=== PATIENT | female | born 1995 | race Caucasian/White ===

== ENCOUNTER 2020-03-10 20:49 | Inpatient (IN) | payer BC, OTHER ==
[2020-03-10 21:26] VITALS: BMI 21.0
--- NOTE | 2020-03-10 23:29 | HP ---
CIWA Score Nausea/Vomitin-Mild Nausea/No Vomiting (nausea) Muscle Tremors: None Anxiety: 4-Mod. Anxious/Guarded Agitation: 4-Moderately Restless Paroxysmal Sweats: 3 Orientation: 1-Uncertain about Date Tacttile Disturbances: 2-Mild Itch/Numbness/Burn Auditory Disturbances: 0-None Visual Disturbances: 0-None Headache: 0-None Present CIWA-Ar Total Score: 15 - Admission Criteria OASAS Guidelines: Admission for Medically Managed Detox: Requires at least one of the followin. CIWA greater than 12 2. Seizures within the past 24 hours 3. Delirium tremens within the past 24 hours 4. Hallucinations within the past 24 hours 5. Acute intervention needed for co occurring medical disorder 6. Acute intervention needed for co occurring psychiatric disorder 7. Severe withdrawal that cannot be handled at a lower level of care (continued vomiting, continued diarrhea, abnormal vital signs) requiring intravenous medication and/or fluids 8. Patient presents the following: CIWA greater than 12 Admission Criteria Met: Admission criteria met Admission ROS [facility] - [facility] Chief Complaint: c/o withdrawal sx's. seeking detox from alcohol and klonopin Allergies/Adverse Reactions: Allergies Allergy/AdvReac Type Severity Reaction Status Date / Time No Known Allergies Allergy Verified 03/11/20 00:36 History of Present Illness: 24 y.o. female with alcohol, opioid, benzo dependence here fro detox. client is self referred. first admission. she reports daily klonopin, and alcohol intake. last use earlier today. she is alos abusing heroin. report mmtp at [facility]. reported dose 225mg of methadone, ldm today. + ivdu, + eye lathe tender, blackouts, drug overdose x3. Denies si/hi/ avh. denies any clean time in the past 12 months. lives with family, unemployed, denies legals. Exam Limitations: No Limitations - Ebola screening Have you traveled outside of the country in the last 21 days: No Have you had contact with anyone from an Ebola affected area: No Have you been sick,other than usual withdrawal symptoms: No Do you have a fever: No - Review of Systems Constitutional: Chills, Loss of Appetite, Night Sweats, Unintentional Wgt. Loss EENT: reports: No Symptoms Reported Respiratory: reports: No Symptoms reported Cardiac: reports: No Symptoms Reported GI: reports: Nausea, Poor Appetite : reports: No Symptoms Reported Musculoskeletal: reports: No Symptoms Reported Integumentary: reports: No Symptoms Reported Neuro: reports: Headache, Seizure Endocrine: reports: No Symptoms Reported Hematology: reports: No Symptoms Reported Psychiatric: reports: Orientated x3, Anxious, Depressed (denies si) Other Systems: Reviewed and Negative Patient History - Patient Medical History Hx Anemia: No Hx Asthma: No Hx Chronic Obstructive Pulmonary Disease (COPD): No Hx Cancer: No Hx Cardiac Disorders: No Hx Congestive Heart Failure: No Hx Hypertension: No Hx Hypercholesterolemia: No Hx Pacemaker: No HX Cerebrovascular Accident: No Hx Seizures: Yes (r/ tbenz, alcohol withdrawal. last episode 3 months) Hx Dementia: No Hx Diabetes: No Hx Gastrointestinal Disorders: No Hx Liver Disease: No Hx Genitourinary Disorders: No Hx Sexually Transmitted Disorders: No Hx Renal Disease (ESRD): No Hx Thyroid Disease: No Hx Human Immunodeficiency Virus (HIV): No Hx Hepatitis C: Yes (tx'ed) Hx Depression: No Hx Suicide Attempt: No Hx Bipolar Disorder: No Hx Schizophrenia: No Other Medical History: denies - Patient Surgical History Past Surgical History: No - PPD History Previous Implant?: Yes Documented Results: Negative w/o proof Implanted On Prior [facility] Admission?: No PPD to be Administered?: Yes - Reproductive History Patient is a Female of Child Bearing Age (11 -55 yrs old): Yes Last Menstrual Period: 06/10/19 ( 02/14/20) LMP comment: preganat for past 10 months [place] [facility] [place] Smoking Cessation Smoking history: Current every day smoker Have you smoked in the past 12 months: Yes Aproximately how many cigarettes per day: 10 Cigars Per Day: 0 Hx Chewing Tobacco Use: No Initiated information on smoking cessation: Yes 'Breaking Loose' booklet given: 03/10/20 - Substance & Tx. History Hx Alcohol Use: Yes Hx Substance Use: Yes Substance Use Type: Alcohol, Heroin, Opiates, Prescribed (methadone), Tranquilizers (klonopin) Hx Substance Use Treatment: Yes ([facility]) - Substances abused Benzodiazepine (Klonopin) Substance route: Oral Frequency: Daily Amount used: 4mg Age of first use: 13 Date of last use: 03/10/20 (utox neg for bzo) Alcohol Other (specify): vodka Substance route: Oral Frequency: Daily Amount used: 1/2 pint Age of first use: 23 Date of last use: 03/10/20 Heroin Substance route: Injection Frequency: Daily Amount used: 10 bags Age of first use: 19 Date of last use: 03/10/20 Admission Physical Exam [facility] - Vital Signs Vital Signs: Vital Signs - 24 hr 03/10/20 21:24 Temperature 97.5 F L Pulse Rate 62 Respiratory 18 Rate Blood Pressure 120/85 - Physical General Appearance: Yes: Moderate Distress, Irritable, Anxious HEENTM: Yes: EOMI, Normocephalic, Normal Voice, KENZIE, Pharynx Normal, Nasal Congestion Respiratory: Yes: Chest Non-Tender, Lungs Clear, Normal Breath Sounds, No Respiratory Distress, No Accessory Muscle Use Neck: Yes: No masses,lesions,Nodules, Supple, Trachea in good position Breast: Yes: Breasts Symetrical, Other (track chau) Cardiology: Yes: Regular Rhythm, Regular Rate, Diastolic Murmur Abdominal: Yes: Normal Bowel Sounds, Non Tender, Flat, Soft, Surgical Scar (healed c- cestion) Genitourinary: Yes: Within Normal Limits Back: Yes: Normal Inspection Musculoskeletal: Yes: full range of Motion, Gait Steady Extremities: Yes: Normal Capillary Refill, Normal Range of Motion, Non-Tender Neurological: Yes: Fully Oriented, Alert, Motor Strength 5/5, Depressed Affect Integumentary: Yes: Dry, Warm, Track Chau (arms, meck, breast, legs) Lymphatic: Yes: Within Normal Limits - Diagnostic (1) Methadone maintenance therapy patient Current Visit: Yes Status: Chronic (2) Alcohol dependence with withdrawal, uncomplicated Current Visit: Yes Status: Acute (3) Benzodiazepine abuse Current Visit: Yes Status: Suspected (4) Nicotine dependence Current Visit: Yes Status: Chronic Qualifiers: Nicotine product type: cigarettes Substance use status: uncomplicated Qualified Code(s): F17.210 - Nicotine dependence, cigarettes, uncomplicated (5) Depressed affect Current Visit: Yes Status: Suspected (6) IVDU (intravenous drug user) Current Visit: Yes Status: Chronic Cleared for Admission [facility] - Detox or Rehab [facility] Level of Care: Medically Managed Detox Regimen/Protocol: Valium Claeared for Rehab Admission: No Breathalyzer - Breathalyzer Breathalyzer: 0 Urine Drug Screen - Test Device Lot number: [id number] Expiration date: 05/01/21 - Control Is test valid?: Yes - Results Drug screen NEGATIVE: No Urine drug screen results: AMEE-Cocaine, FEN-Fentanyl, MOP-Opiates, MTD-Methadone Inpatient Rehab Admission - Rehab Decision to Admit Inpatient rehab admission?: No
[2020-03-10] MEDS ORDERED: MAGNESIUM CITRATE 300 ML BOTTLE PO PRN (23:53)
[2020-03-10] MEDS ORDERED: MAGNESIUM HYDROX 2400MG/30ML ORAL SUSPENSION 30 ML CUP PO PRN (23:53)
[2020-03-10] MEDS ORDERED: guaiFENesin 200 MG/10 ML 10 ML UNIT-DOSE CUPS PO PRN (23:53)
[2020-03-10] MEDS ORDERED: MENTHOL/PHENOL 1 EACH UD MM PRN (23:53)
[2020-03-10] MEDS ORDERED: NICOTINE POLACRILEX 2 MG GUM BUC PRN (23:53)
[2020-03-10] MEDS ORDERED: DICYCLOMINE HCL 10 MG CAPSULE PO PRN (23:53)
[2020-03-10] MEDS ORDERED: ACETAMINOPHEN 325 MG TABLET (FP) PO PRN ×2 (23:53)
[2020-03-10] MEDS ORDERED: MAG HYDROX/AL HYDROX/SIMETH 30 ML UNIT-DOSE CUP PO PRN (23:53)
[2020-03-10] MEDS ORDERED: P-EPHED 60MG/TRIPROLIDI 2.5MG TABLET PO PRN (23:53)
[2020-03-11] MEDS: diazePAM 5 MG TABLET PO PRN ×4 (01:04→19:30)
[2020-03-11] MEDS: MELATONIN 5 MG TABLETS PO SCH ×2 (01:05→22:14)
[2020-03-11] MEDS: ONDANSETRON *ODT* 4 MG TABLET SL ONE ×2 (01:05→01:11)
[2020-03-11] MEDS: diazePAM 5 MG TABLET PO SCH ×3 (05:34→22:14)
[2020-03-11] MEDS ORDERED: hydrOXYzine PAMOATE 25 MG CAPSULE (FP) PO SCH (06:00)
[2020-03-11] MEDS ORDERED: METHADONE HCL 10 MG TABLET PO SCH (10:15)
[2020-03-11] MEDS ORDERED: METHADONE HCL 10 MG TABLET ONE (10:40)
[2020-03-11] MEDS ORDERED: METHADONE HCL 5 MG TABLET ONE (10:41)
[2020-03-11] MEDS ORDERED: METHADONE HCL 40 MG DISPERSABLE TABLET ONE (10:41)
[2020-03-11] MEDS: METHADONE PO SCH (10:43)
[2020-03-11] MEDS: PRENATAL VITAMINS W/ FOLIC ACID TABLET (FP) PO SCH (10:43)
[2020-03-11] MEDS: NICOTINE 14 MG/24 HOURS TOPICAL PATCH TD SCH (10:45)
--- NOTE | 2020-03-11 14:21 | PN ---
S CIWA - CIWA Score Nausea/Vomitin-No Nausea/No Vomiting Muscle Tremors: None Anxiety: 3 Agitation: 2 Paroxysmal Sweats: 3 Orientation: 0-Oriented Tacttile Disturbances: 0-None Auditory Disturbances: 0-None Visual Disturbances: 0-None Headache: 2-Mild CIWA-Ar Total Score: 10 BHS Progress Note (SOAP) Subjective: c/o sweats, anxiety, and headache. Objective: 03/11/20 14:21 Vital Signs 03/11/20 03/11/20 08:36 12:58 Temperature 97.2 F L 96.9 F L Pulse Rate 80 87 Respiratory 18 18 Rate Blood Pressure 109/78 108/74 O2 Sat by Pulse 96 Oximetry (%) Assessment: 03/11/20 14:22 AOx 3, in no acute respiratory distress. Full ROM, ambulating in the unit. Withdrawal symptoms. Covid-19 test result pending. 03/11/20 14:23 Plan: continue detox.
[2020-03-11] MEDS ORDERED: TRIMETHOBENZAMIDE HCL 200MG/2ML INJ IM PRN (15:36)
--- NOTE | 2020-03-11 16:51 | CONSULT ---
[facility] Psychiatric Consult - Data Date of interview: 03/11/20 Admission source: [facility] Identifying data: First visit to [facility] and admission to [address] [place] [address] for this 24 y/o female self-referred for detoxification treatment. MANOJ issues : alcohol, nicotine, heroin, benzodiazepines (xanax, klonopin). Patient is single, mother of two, domiciled, unemployed and supported by [facility]. Substance Abuse History: Discussed with the patient. MANOJ profile as follows : Smoking history: Current every day smoker. Have you smoked in the past 12 months: Yes. Aproximately how many cigarettes per day: 10. Cigars Per Day: 0. Hx Chewing Tobacco Use: No. Initiated information on smoking cessation: Yes. 'Breaking Loose' booklet given: 03/10/20. - Substance & Tx. History. Hx Alcohol Use: Yes. Hx Substance Use: Yes. Substance Use Type: Alcohol, Heroin, Opiates, Prescribed (methadone), Tranquilizers (klonopin). Hx Substance Use Treatment: Yes (aci). - Substances abused. Benzodiazepine (Klonopin). Substance route: Oral. Frequency: Daily. Amount used: 4mg. Age of first use: 13. Date of last use: 03/10/20 (utox neg for bzo). Alcohol. Other (specify): vodka. Substance route: Oral. Frequency: Daily. Amount used: 1/2 pint. Age of first use: 23. Date of last use: 03/10/20. Heroin. Substance route: Injection. Frequency: Daily. Amount used: 10 bags. Age of first use: 19. Date of last use: 03/10/20 Medical History: Medical profile is remarkable for antecedent of withdrawal- related seizures, hepatistis C and recent section (02/14/20). Psychiatric History: Patient denies history of psychiatric hospitalizations. She used to see a private psychiatrist in [place] for medication management under the diagnosis of Anxiety Disorder (4-5 years ago). Ms Goss is currently on gabapentin 800 mg/tid from her primary care physician. Patient is on methadone maintenance (225 mg/day) at the [facility] in [facility]. She denies history of suicide attempts. Physical/Sexual Abuse/Trauma History: Not discussed. Patient declines. Additional Comment: Urine drug screen results: AMEE-Cocaine, FEN-Fentanyl, MOP-Opiates, MTD-Methadone. Noted. Mental Status Exam - Mental Status Exam Alert and Oriented to: Time, Place, Person Cognitive Function: Good Patient Appearance: Well Groomed (short stature, thin habitus) Mood: Nervous Affect: Appropriate, Normal Range Patient Behavior: Cooperative (medication-seeking) Speech Pattern: Clear, Appropriate Voice Loudness: Normal Thought Process: Intact, Goal Oriented Thought Disorder: Not Present Hallucinations: Denies Suicidal Ideation: Denies Homicidal Ideation: Denies Insight/Judgement: Poor Sleep: Poorly, Difficulty falling asleep Appetite: Good Gait/Station: Normal Psychiatric Findings - Problem List ([place] 1, 2,3) (1) Alcohol dependence with withdrawal, uncomplicated Current Visit: Yes Status: Acute (2) Opioid dependence on agonist therapy Current Visit: Yes Status: Chronic (3) Benzodiazepine abuse Current Visit: Yes Status: Chronic (4) Nicotine dependence Current Visit: Yes Status: Chronic Qualifiers: Nicotine product type: cigarettes Substance use status: uncomplicated Qualified Code(s): F17.210 - Nicotine dependence, cigarettes, uncomplicated (5) Substance induced mood disorder Current Visit: Yes Status: Chronic (6) Insomnia Current Visit: Yes Status: Chronic - Initial Treatment Plan Initial Treatment Plan: Psychoeducation. Sleep hygiene. Detoxification. Claim of gabapentin 800 mg/qid cannot be verified (no pharmacy on file, no medication reported in Reconciliation list). Observation.
[2020-03-11] MEDS: BISMUTH SUBSALICYLATE 524 MG/30 ML UD PO PRN ×3 (17:58→20:46)
[2020-03-11] MEDS: METHOCARBAMOL 500 MG TABLET PO PRN (17:59)
[2020-03-11] MEDS: THIAMINE HCL 100 MG TABLET (FP) PO SCH (22:14)
[2020-03-12] MEDS ORDERED: METHADONE HCL 10 MG TABLET ONE (03:26)
[2020-03-12] MEDS ORDERED: METHADONE HCL 40 MG DISPERSABLE TABLET ONE (03:27)
[2020-03-12] MEDS ORDERED: METHADONE HCL 5 MG TABLET ONE (03:27)
[2020-03-12] MEDS: diazePAM 5 MG TABLET PO SCH ×2 (06:07→17:05)
[2020-03-12] MEDS: METHADONE PO SCH (06:07)
[2020-03-12] MEDS: METHOCARBAMOL 500 MG TABLET PO PRN ×2 (06:11→17:07)
[2020-03-12] MEDS: NICOTINE 14 MG/24 HOURS TOPICAL PATCH TD SCH (10:35)
[2020-03-12] MEDS: PRENATAL VITAMINS W/ FOLIC ACID TABLET (FP) PO SCH (10:35)
[2020-03-12] MEDS: diazePAM 5 MG TABLET PO PRN ×3 (10:35→19:30)
[2020-03-12 11:03] LABS: URINE APPEARANCE CLEAR; URINE BILIRUBIN NEGATIVE (NEGATIVE); URINE COLOR YELLOW; URINE GLUCOSE (UA) NEGATIVE (NEGATIVE); URINE KETONE NEGATIVE (NEGATIVE); URINE LEUK ESTERASE NEGATIVE (NEGATIVE); URINE NITRITE NEGATIVE (NEGATIVE); URINE PROTEIN NEGATIVE (NEGATIVE)
[2020-03-12] MEDS ORDERED: LOPERAMIDE HCL 2 MG CAPSULE PO ONE (11:04)
--- NOTE | 2020-03-12 11:07 | PN ---
[facility] CIWA - CIWA Score Nausea/Vomitin-No Nausea/No Vomiting Muscle Tremors: 1-None Visible, but [place] Anxiety: 1-Mildly Anxious Agitation: 2 Paroxysmal Sweats: 1-Minimal Palms Moist Orientation: 0-Oriented Tacttile Disturbances: 1-Very Mild Itch/Numbness Auditory Disturbances: 0-None Visual Disturbances: 1-Very Mild Sensitivity Headache: 0-None Present CIWA-Ar Total Score: 7 BHS Progress Note (SOAP) Subjective: 24 years old female admitted on 03/10/20 for alcohol and benzo withdrawal sx management treating with valium detox regiment feeling better today agrees returning to methadone program for gabapentin and vistaril ensure 120 ml po tid Objective: 03/12/20 11:10 Vital Signs - 24 hr 03/11/20 03/11/20 03/11/20 12:58 17:00 20:49 Temperature 96.9 F L 97.3 F L 97.5 F L Pulse Rate 87 72 75 Respiratory 18 20 16 Rate Blood Pressure 108/74 103/72 105/72 O2 Sat by Pulse 96 100 Oximetry (%) 03/12/20 03/12/20 06:30 08:43 Temperature 97.5 F L 97.3 F L Pulse Rate 60 88 Respiratory 18 18 Rate Blood Pressure 109/68 108/72 O2 Sat by Pulse 96 Oximetry (%) Laboratory Tests 03/12/20 07:10 Urine Color Yellow Urine Appearance Clear Urine pH 8.0 Ur Specific [place] 1.020 Urine Protein Negative Urine Glucose (UA) Negative Urine Ketones Negative Urine Blood Negative Urine Nitrite Negative Urine Bilirubin Negative Urine Urobilinogen 1.0 Ur Leukocyte Esterase Negative lab noted Assessment: 03/12/20 11:10 alcohol and benzo withdrawal Plan: valium regiment
--- NOTE | 2020-03-12 11:30 | EKG ---
Test Reason : Blood Pressure : / mmHG Vent. Rate : 064 BPM Atrial Rate : 064 BPM P-R Int : 146 ms QRS Dur : 088 ms QT Int : 488 ms P-R-T Axes : 059 060 046 degrees QTc Int : 503 ms NORMAL SINUS RHYTHM PROLONGED QT ABNORMAL ECG NO PREVIOUS ECGS AVAILABLE Confirmed by DENICE STRONG MD ([id number]) on 03/12/2020 11:30:11 AM Referred By: Nick Gomez Confirmed By:DENICE STRONG MD
[2020-03-12] MEDS: IBUPROFEN 400 MG TABLET (FP) PO PRN ×2 (11:33→19:31)
[2020-03-12] MEDS: CHLORHEXIDINE GLUCONATE 0.12% 15ML CUP MM SCH ×3 (15:20→21:55)
[2020-03-12] MEDS: BISMUTH SUBSALICYLATE 524 MG/30 ML UD PO PRN ×2 (19:40→21:23)
[2020-03-12] MEDS: MELATONIN 5 MG TABLETS PO SCH (21:55)
[2020-03-12] MEDS: THIAMINE HCL 100 MG TABLET (FP) PO SCH (21:55)
[2020-03-13] MEDS: METHOCARBAMOL 500 MG TABLET PO PRN (02:33)
[2020-03-13] MEDS: diazePAM 5 MG TABLET PO PRN (02:33)
[2020-03-13] MEDS ORDERED: METHADONE HCL 10 MG TABLET ONE (04:40)
[2020-03-13] MEDS ORDERED: METHADONE HCL 40 MG DISPERSABLE TABLET ONE (04:40)
[2020-03-13] MEDS ORDERED: METHADONE HCL 5 MG TABLET ONE (04:41)
[2020-03-13] MEDS: METHADONE PO SCH (05:34)
[2020-03-13] MEDS ORDERED: diazePAM 5 MG TABLET PO ONE (06:00)
[2020-03-13 06:12] VITALS: BP 116/75; PULSE 104; TEMP 97.6
--- NOTE | 2020-03-13 08:54 | DS ---
[facility] Detox Discharge Summary Admission Date: 03/10/20 Discharge Date: 03/13/20 - History Present History: Alcohol Dependence, Sedative Dependence Additional Comments: 24 years old female admitted on 03/10/20 for alcohol and benzo withdrawal sx management treated with valium regiment seen by psychiatrist no medical intervention ms bartholomew has completed the valium regiment and s tolerated well alert oriented x 3 speech clearly coherently ambulating steady gaits cardiac s1s2 regular rate rhythm ekg indicated left atrial enlargement first ekg indicated prolong qtc second ekg indicated 440 qtc denies chest pain denies dizziness no shortness of breath respiratory clear lung sounds bilaterally on auscultation extremities full range of motion Pertinent Past History: time for discharge 42 minutes ms bartholomew connects with a male peer closely ms bartholomew received methadone 225 mg po today discussing risks of methadone mixed with benzo - Physical Exam Results Vital Signs: Vital Signs Temperature 97.6 F 03/13/20 06:12 Pulse Rate 104 H 03/13/20 06:12 Respiratory Rate 18 03/13/20 06:12 Blood Pressure 116/75 03/13/20 06:12 O2 Sat by Pulse Oximetry (%) 97 03/13/20 06:12 Pertinent Admission Physical Exam Findings: alcohol and benzo withdrawal Laboratory Tests 03/10/20 03/10/20 03/12/20 11:55 21:28 07:10 Urine Color Yellow Urine Appearance Clear Urine pH 8.0 Ur Specific [place] 1.020 Urine Protein Negative Urine Glucose (UA) Negative Urine Ketones Negative Urine Blood Negative Urine Nitrite Negative Urine Bilirubin Negative Urine Urobilinogen 1.0 Ur Leukocyte Esterase Negative POC Urine HCG, Qual Negative COVID-19 (SHA) Not detected lab noted - Treatment Hospital Course: Detox Protocol Followed, Detoxed Safely, Responded well, Discharged Condition Good, Rehab Referral Accepted Patient has Accepted a Rehab Referral to: [facility] - Medication Discharge Medications: Ambulatory Orders Gabapentin 800 mg PO TID 03/11/20 - Diagnosis (1) Alcohol dependence with withdrawal, uncomplicated Status: Acute (2) Benzodiazepine abuse Status: Acute (3) Methadone maintenance therapy patient Status: Chronic (4) Nicotine dependence Status: Acute Qualifiers: Nicotine product type: cigarettes Substance use status: in withdrawal Qualified Code(s): F17.213 - Nicotine dependence, cigarettes, with withdrawal - AMA Did Patient Leave Against Medical Advice: No CIWA Score - CIWA Score Nausea/Vomitin-No Nausea/No Vomiting Muscle Tremors: 1-None Visible, but [place] Anxiety: 1-Mildly Anxious Agitation: 2 Paroxysmal Sweats: No Perspiration Orientation: 0-Oriented Tacttile Disturbances: 0-None Auditory Disturbances: 0-None Visual Disturbances: 0-None Headache: 0-None Present CIWA-Ar Total Score: 4
--- NOTE | 2020-03-13 09:43 | EKG ---
Test Reason : Blood Pressure : / mmHG Vent. Rate : 066 BPM Atrial Rate : 066 BPM P-R Int : 140 ms QRS Dur : 084 ms QT Int : 420 ms P-R-T Axes : 053 030 031 degrees QTc Int : 440 ms NORMAL SINUS RHYTHM POSSIBLE LEFT ATRIAL ENLARGEMENT BORDERLINE ECG WHEN COMPARED WITH ECG OF 10-MAR-2020 22:55, QT HAS SHORTENED Confirmed by James Hernandez ([id number]) on 03/13/2020 9:42:34 AM Referred By: Nick Gomez Confirmed By:James Hernandez
== END 2020-03-13 09:06 | disposition home or self-care (01) | DRG 773 ==
LOC: YASAS 20:49 → Y3N 23:45
PROVIDERS: ADMIT Allergy & Immunology; ATTEND Allergy & Immunology
PROC: HZ2ZZZZ Detoxification Services for Substance Abuse Treatment (ICD-10-PCS; principal; 2020-03-10)
DX: F10.230 Alcohol dependence with withdrawal, uncomplicated (principal); F11.20 Opioid dependence, uncomplicated; F13.230 Sedative, hypnotic or anxiolytic dependence with withdrawal, uncomplicated; F17.213 Nicotine dependence, cigarettes, with withdrawal; F19.24 Other psychoactive substance dependence with psychoactive substance-induced mood disorder; I51.7 Cardiomegaly; G47.00 Insomnia, unspecified; R45.89 Other symptoms and signs involving emotional state; G40.509 Epileptic seizures related to external causes, not intractable, without status epilepticus; Z86.19 Personal history of other infectious and parasitic diseases; Z56.0 Unemployment, unspecified
CPT/HCPCS: 81003; 81025; 93005; 93010; Q0162; U0003

== ENCOUNTER 2020-08-13 10:08 | Inpatient (IN) | payer OTHER ==
[2020-08-13 11:24] VITALS: BMI 21.9
[2020-08-13] MEDS ORDERED: MAG HYDROX/AL HYDROX/SIMETH 30 ML UNIT-DOSE CUP PO PRN (12:19)
[2020-08-13] MEDS ORDERED: MAGNESIUM CITRATE 300 ML BOTTLE PO PRN (12:19)
[2020-08-13] MEDS ORDERED: ACETAMINOPHEN 325 MG TABLET (FP) PO PRN ×2 (12:19)
[2020-08-13] MEDS ORDERED: MAGNESIUM HYDROX 2400MG/30ML ORAL SUSPENSION 30 ML CUP PO PRN (12:19)
[2020-08-13] MEDS ORDERED: MENTHOL/PHENOL 1 EACH UD MM PRN (12:19)
[2020-08-13] MEDS ORDERED: BISMUTH SUBSALICYLATE 524 MG/30 ML UD PO PRN (12:19)
[2020-08-13] MEDS ORDERED: NICOTINE POLACRILEX 2 MG GUM BUC PRN (12:19)
[2020-08-13] MEDS ORDERED: ONDANSETRON *ODT* 4 MG TABLET SL PRN (12:19)
[2020-08-13] MEDS ORDERED: diazePAM 5 MG TABLET PO ONE (12:22)
[2020-08-13] MEDS: SULFAMETHOXAZOLE/TRIMETHOPRIM 800MG/160MG D.S. TABLET PO SCH ×2 (13:54→22:28)
[2020-08-13] MEDS: BACITRACIN/POLYMYXIN B SULFATE 15 GM TUBE TP SCH ×2 (15:34→22:28)
[2020-08-13] MEDS: IBUPROFEN 400 MG TABLET (FP) PO PRN (17:15)
[2020-08-13] MEDS: diazePAM 5 MG TABLET PO SCH ×2 (17:16→22:29)
[2020-08-13] MEDS: THIAMINE HCL 100 MG TABLET (FP) PO SCH (22:28)
[2020-08-13] MEDS: MELATONIN 5 MG TABLETS PO PRN (22:30)
[2020-08-13] MEDS: hydrOXYzine PAMOATE 25 MG CAPSULE (FP) PO PRN (22:32)
[2020-08-13] MEDS: METHOCARBAMOL 500 MG TABLET PO PRN (22:33)
[2020-08-14] MEDS: diazePAM 5 MG TABLET PO SCH ×4 (05:38→22:24)
[2020-08-14] MEDS: PRENATAL VITAMINS W/ FOLIC ACID TABLET (FP) PO SCH (10:22)
[2020-08-14] MEDS: SULFAMETHOXAZOLE/TRIMETHOPRIM 800MG/160MG D.S. TABLET PO SCH ×2 (10:22→22:24)
[2020-08-14] MEDS: BACITRACIN/POLYMYXIN B SULFATE 15 GM TUBE TP SCH ×2 (10:25→22:24)
[2020-08-14] MEDS ORDERED: METHADONE HCL 10 MG TABLET PO ONE (10:34)
[2020-08-14] MEDS ORDERED: METHADONE 120 MG, METHADONE 30 MG, METHADONE 5 MG PO ONE (10:34)
[2020-08-14 10:44] LABS: HEMATOCRIT 29.9 % (32.4-45.2); HEMOGLOBIN 9.5 GM/dL (10.7-15.3); MCH 25.8 pg (25.7-33.7); MCHC 31.9 g/dl (32.0-36.0); MEAN CELL VOLUME 80.9 fl (80-96); MEAN PLT VOLUME 8.5 fl (7.5-11.1); PLATELET COUNT 363 K/MM3 (134-434); RDW 16.1 % (11.6-15.6); WHITE BLOOD COUNT 5.1 K/mm3 (4.0-10.0)
[2020-08-14 10:45] LABS: POTASSIUM 4.3 mmol/L (3.5-5.1)
[2020-08-14 10:47] LABS: ALBUMIN 2.8 g/dl (3.4-5.0); CALCIUM 8.4 mg/dL (8.5-10.1)
[2020-08-14 10:50] LABS: CREATININE 0.7 mg/dL (0.55-1.3)
[2020-08-14 10:52] LABS: BILIRUBIN,TOTAL 0.3 mg/dL (0.2-1); TOT PROT 7.4 g/dl (6.4-8.2)
[2020-08-14 11:05] LABS: BLOOD UREA NITROGEN 18.3 mg/dL (7-18)
[2020-08-14 11:38] LABS: HIV INTERPRETATION NEGATIVE (NEGATIVE)
[2020-08-14] MEDS ORDERED: METHADONE HCL 40 MG DISPERSABLE TABLET ONE (11:58)
[2020-08-14] MEDS ORDERED: METHADONE HCL 10 MG TABLET ONE (11:58)
[2020-08-14] MEDS ORDERED: METHADONE HCL 5 MG TABLET ONE (11:59)
[2020-08-14] MEDS: diazePAM 5 MG TABLET PO PRN (13:14)
[2020-08-14] MEDS: hydrOXYzine PAMOATE 25 MG CAPSULE (FP) PO PRN (13:15)
[2020-08-14] MEDS ORDERED: hydrOXYzine PAMOATE 50 MG CAPSULE (FP) PO PRN (13:25)
[2020-08-14] MEDS ORDERED: hydrOXYzine PAMOATE 25 MG CAPSULE (FP) PO SCH (13:30)
[2020-08-14] MEDS: NICOTINE 21 MG/24 HOURS TOPICAL PATCH TD SCH (14:15)
[2020-08-14] MEDS: IBUPROFEN 400 MG TABLET (FP) PO PRN (14:17)
[2020-08-14] MEDS: METHOCARBAMOL 500 MG TABLET PO PRN (14:17)
[2020-08-14] MEDS: NICOTINE POLACRILEX 4 MG GUM BUC PRN (14:19)
[2020-08-14] MEDS: THIAMINE HCL 100 MG TABLET (FP) PO SCH (22:24)
[2020-08-14] MEDS: MELATONIN 5 MG TABLETS PO PRN (22:24)
[2020-08-15] MEDS ORDERED: METHADONE HCL 10 MG TABLET ONE ×2 (04:48→08:17)
[2020-08-15] MEDS ORDERED: METHADONE HCL 5 MG TABLET ONE ×2 (04:49→08:17)
[2020-08-15] MEDS ORDERED: METHADONE HCL 40 MG DISPERSABLE TABLET ONE ×2 (04:49→08:17)
[2020-08-15] MEDS: diazePAM 5 MG TABLET PO SCH ×2 (05:58→13:26)
[2020-08-15] MEDS: NICOTINE POLACRILEX 4 MG GUM BUC PRN ×3 (05:59→14:20)
[2020-08-15] MEDS ORDERED: METHADONE 120 MG, METHADONE 30 MG, METHADONE 5 MG PO SCH ×2 (06:00→10:00)
[2020-08-15] MEDS ORDERED: METHADONE HCL 10 MG TABLET PO SCH (06:00)
[2020-08-15] MEDS: BACITRACIN/POLYMYXIN B SULFATE 15 GM TUBE TP SCH (09:12)
[2020-08-15] MEDS: SULFAMETHOXAZOLE/TRIMETHOPRIM 800MG/160MG D.S. TABLET PO SCH (09:13)
[2020-08-15] MEDS: PRENATAL VITAMINS W/ FOLIC ACID TABLET (FP) PO SCH (09:13)
[2020-08-15] MEDS: NICOTINE 21 MG/24 HOURS TOPICAL PATCH TD SCH (09:17)
[2020-08-15 09:39] VITALS: TEMP 97.3
[2020-08-15] MEDS: diazePAM 5 MG TABLET PO PRN (11:06)
[2020-08-15] MEDS ORDERED: FERROUS SO4 325 MG TABLET (FP) PO SCH (11:45)
[2020-08-15 13:01] VITALS: PULSE 81
[2020-08-15] MEDS ORDERED: GABAPENTIN 400 MG CAPSULE PO SCH (14:00)
[2020-08-15 14:01] VITALS: BP 100/58
[2020-08-16] MEDS ORDERED: diazePAM 5 MG TABLET PO SCH (06:00)
[2020-08-17] MEDS ORDERED: diazePAM 5 MG TABLET PO ONE (06:00)
== END 2020-08-15 15:15 | disposition left against medical advice (07) | DRG 770 ==
LOC: YASAS 10:08 → Y3N 12:28
PROVIDERS: ADMIT Allergy & Immunology; ATTEND Allergy & Immunology
PROC: HZ2ZZZZ Detoxification Services for Substance Abuse Treatment (ICD-10-PCS; principal; 2020-08-13)
DX: F10.230 Alcohol dependence with withdrawal, uncomplicated (principal); F13.230 Sedative, hypnotic or anxiolytic dependence with withdrawal, uncomplicated; F11.20 Opioid dependence, uncomplicated; F12.10 Cannabis abuse, uncomplicated; F17.213 Nicotine dependence, cigarettes, with withdrawal; F19.24 Other psychoactive substance dependence with psychoactive substance-induced mood disorder; G47.00 Insomnia, unspecified; L02.411 Cutaneous abscess of right axilla; L02.415 Cutaneous abscess of right lower limb; R00.1 Bradycardia, unspecified; Z86.69 Personal history of other diseases of the nervous system and sense organs; Z62.810 Personal history of physical and sexual abuse in childhood; Z87.11 Personal history of peptic ulcer disease; Z86.19 Personal history of other infectious and parasitic diseases; Z88.1 Allergy status to other antibiotic agents; Z91.14 Patient's other noncompliance with medication regimen
CPT/HCPCS: 36415; 80053; 81025; 85027; 86780; 87389; C9803; U0003

== ENCOUNTER 2020-08-13 19:38 | Emergency (ER) | payer OTHER ==
[2020-08-13 19:55] VITALS: BP 103/65; PULSE 70; TEMP 97.8; BMI 25.6
== END 2020-08-13 21:42 | disposition short-term general hospital (02) ==
LOC: JER 19:38
DX: L03.111 Cellulitis of right axilla (principal)
CPT/HCPCS: 99282-25

== ENCOUNTER 2020-10-28 11:16 | Inpatient (IN) | payer OTHER ==
[2020-10-28 13:49] VITALS: BMI 20.1
[2020-10-28] MEDS ORDERED: diazePAM 5 MG TABLET PO ONE (14:35)
[2020-10-28] MEDS ORDERED: METHOCARBAMOL 500 MG TABLET PO PRN (14:35)
[2020-10-28] MEDS ORDERED: MAGNESIUM CITRATE 300 ML BOTTLE PO PRN (14:35)
[2020-10-28] MEDS ORDERED: MAGNESIUM HYDROX 2400MG/30ML ORAL SUSPENSION 30 ML CUP PO PRN (14:35)
[2020-10-28] MEDS ORDERED: IBUPROFEN 400 MG TABLET (FP) PO PRN (14:35)
[2020-10-28] MEDS ORDERED: NICOTINE POLACRILEX 4 MG GUM BUC PRN (14:35)
[2020-10-28] MEDS ORDERED: ACETAMINOPHEN 325 MG TABLET (FP) PO PRN ×2 (14:35)
[2020-10-28] MEDS ORDERED: MAG HYDROX/AL HYDROX/SIMETH 30 ML UNIT-DOSE CUP PO PRN (14:35)
[2020-10-28] MEDS ORDERED: BISMUTH SUBSALICYLATE 524 MG/30 ML UD PO PRN (14:35)
[2020-10-28] MEDS ORDERED: ONDANSETRON *ODT* 4 MG TABLET SL PRN (14:35)
[2020-10-28] MEDS ORDERED: MENTHOL/PHENOL 1 EACH UD MM PRN (14:35)
[2020-10-28] MEDS: hydrOXYzine PAMOATE 25 MG CAPSULE (FP) PO SCH ×2 (18:33→23:55)
[2020-10-28] MEDS: diazePAM 5 MG TABLET PO SCH ×2 (19:40→23:55)
[2020-10-28] MEDS: PRENATAL VITAMINS W/ FOLIC ACID TABLET (FP) PO SCH (19:40)
[2020-10-28] MEDS: GABAPENTIN 400 MG CAPSULE PO SCH (23:54)
[2020-10-28] MEDS: MELATONIN 5 MG TABLETS PO SCH (23:54)
[2020-10-28] MEDS: THIAMINE HCL 100 MG TABLET (FP) PO SCH (23:55)
[2020-10-29] MEDS: diazePAM 5 MG TABLET PO SCH ×4 (06:39→22:08)
[2020-10-29] MEDS: hydrOXYzine PAMOATE 25 MG CAPSULE (FP) PO SCH ×5 (06:40→22:09)
[2020-10-29] MEDS: GABAPENTIN 400 MG CAPSULE PO SCH ×3 (06:40→22:08)
[2020-10-29] MEDS: COLLOIDAL OATMEAL 1 BAR EACH TP PRN (07:49)
[2020-10-29] MEDS ORDERED: METHADONE HCL 40 MG DISPERSABLE TABLET PO ONE (10:00)
[2020-10-29] MEDS ORDERED: METHADONE 160 MG, METHADONE 10 MG, METHADONE 5 MG PO ONE ×2 (10:00→10:45)
[2020-10-29] MEDS ORDERED: LOPERAMIDE HCL 2 MG CAPSULE PO ONE (10:17)
[2020-10-29] MEDS: PRENATAL VITAMINS W/ FOLIC ACID TABLET (FP) PO SCH (10:42)
[2020-10-29] MEDS ORDERED: METHADONE HCL 10 MG TABLET ONE (10:43)
[2020-10-29] MEDS ORDERED: METHADONE HCL 5 MG TABLET ONE (10:44)
[2020-10-29] MEDS ORDERED: METHADONE HCL 40 MG DISPERSABLE TABLET ONE (10:44)
[2020-10-29 11:17] LABS: HEMATOCRIT 33.2 % (32.4-45.2); HEMOGLOBIN 10.6 GM/dL (10.7-15.3); MCH 25.1 pg (25.7-33.7); MEAN CELL VOLUME 78.4 fl (80-96); MEAN PLT VOLUME 8.7 fl (7.5-11.1); PLATELET COUNT 398 K/MM3 (134-434); RBC 4.24 M/mm3 (3.60-5.2); RDW 16.8 % (11.6-15.6); WHITE BLOOD COUNT 6.5 K/mm3 (4.0-10.0)
[2020-10-29 11:20] LABS: POTASSIUM 4.4 mmol/L (3.5-5.1)
[2020-10-29 11:29] LABS: ALBUMIN 3.3 g/dl (3.4-5.0); BLOOD UREA NITROGEN 13.1 mg/dL (7-18)
[2020-10-29 11:32] LABS: CREATININE 0.7 mg/dL (0.55-1.3)
[2020-10-29 11:34] LABS: TOT PROT 8.7 g/dl (6.4-8.2)
[2020-10-29 11:35] LABS: BILIRUBIN,TOTAL 0.6 mg/dL (0.2-1)
[2020-10-29] MEDS: CEPHALEXIN MONOHYDRATE 250 MG CAPSULE (FP) PO SCH ×2 (12:56→17:42)
[2020-10-29] MEDS: diazePAM 5 MG TABLET PO PRN ×2 (12:57→19:55)
[2020-10-29] MEDS: BACITRACIN 0.9 GM PACKET TP SCH ×2 (12:59→22:09)
[2020-10-29] MEDS ORDERED: GABAPENTIN 400 MG CAPSULE PO SCH (14:00)
[2020-10-29] MEDS: THIAMINE HCL 100 MG TABLET (FP) PO SCH (22:09)
[2020-10-29] MEDS: MELATONIN 5 MG TABLETS PO SCH (22:09)
[2020-10-30] MEDS: diazePAM 5 MG TABLET PO PRN ×2 (02:05→09:03)
[2020-10-30] MEDS: GABAPENTIN 400 MG CAPSULE PO SCH (05:49)
[2020-10-30] MEDS: BACITRACIN 0.9 GM PACKET TP SCH (05:50)
[2020-10-30] MEDS: hydrOXYzine PAMOATE 25 MG CAPSULE (FP) PO SCH ×2 (05:50→10:44)
[2020-10-30] MEDS: CEPHALEXIN MONOHYDRATE 250 MG CAPSULE (FP) PO SCH (05:52)
[2020-10-30] MEDS ORDERED: diazePAM 5 MG TABLET PO SCH (06:00)
[2020-10-30] MEDS ORDERED: METHADONE 160 MG, METHADONE 10 MG, METHADONE 5 MG PO ONE (09:30)
[2020-10-30] MEDS ORDERED: METHADONE HCL 10 MG TABLET PO ONE (10:00)
[2020-10-30] MEDS ORDERED: METHADONE HCL 10 MG TABLET ONE (10:03)
[2020-10-30] MEDS ORDERED: METHADONE HCL 5 MG TABLET ONE (10:04)
[2020-10-30] MEDS ORDERED: METHADONE HCL 40 MG DISPERSABLE TABLET ONE (10:04)
[2020-10-30] MEDS: COLLOIDAL OATMEAL 1 BAR EACH TP PRN (10:44)
[2020-10-30] MEDS: PRENATAL VITAMINS W/ FOLIC ACID TABLET (FP) PO SCH (11:30)
[2020-10-30 11:38] VITALS: BP 103/62; PULSE 82; TEMP 97.1
[2020-10-31] MEDS ORDERED: diazePAM 5 MG TABLET PO SCH (06:00)
[2020-10-31] MEDS ORDERED: METHADONE 160 MG, METHADONE 10 MG, METHADONE 5 MG PO SCH (06:00)
[2020-10-31] MEDS ORDERED: METHADONE HCL 10 MG TABLET PO SCH (06:00)
[2020-11-01] MEDS ORDERED: diazePAM 5 MG TABLET PO ONE (06:00)
== END 2020-10-30 14:02 | disposition home or self-care (01) | DRG 773 ==
LOC: YASAS 11:16 → Y6N 15:12
PROVIDERS: ADMIT Allergy & Immunology; ATTEND Allergy & Immunology
PROC: HZ2ZZZZ Detoxification Services for Substance Abuse Treatment (ICD-10-PCS; principal; 2020-10-28)
DX: F10.230 Alcohol dependence with withdrawal, uncomplicated (principal); F13.230 Sedative, hypnotic or anxiolytic dependence with withdrawal, uncomplicated; F11.20 Opioid dependence, uncomplicated; F17.213 Nicotine dependence, cigarettes, with withdrawal; F14.10 Cocaine abuse, uncomplicated; F19.24 Other psychoactive substance dependence with psychoactive substance-induced mood disorder; F41.9 Anxiety disorder, unspecified; F32.9 Major depressive disorder, single episode, unspecified; F90.9 Attention-deficit hyperactivity disorder, unspecified type; F42.4 Excoriation (skin-picking) disorder; G40.509 Epileptic seizures related to external causes, not intractable, without status epilepticus; L03.113 Cellulitis of right upper limb; L03.114 Cellulitis of left upper limb; L03.116 Cellulitis of left lower limb; L03.115 Cellulitis of right lower limb; B18.2 Chronic viral hepatitis C; Z62.810 Personal history of physical and sexual abuse in childhood; Z86.711 Personal history of pulmonary embolism; Z88.1 Allergy status to other antibiotic agents; Z56.0 Unemployment, unspecified; Z59.0 Homelessness
CPT/HCPCS: 36415; 80053; 85027; 86780; C9803; Q0162; U0003

== ENCOUNTER 2021-02-22 02:23 | Inpatient (IN) | payer OTHER ==
[2021-02-22] MEDS ORDERED: CLINDAMYCIN 600MG PREMIX IVPB 600 MG/50 ML BAG IVPB ONE ×2 (04:11→04:42)
[2021-02-22] MEDS ORDERED: IBUPROFEN 400 MG TABLET (FP) PO ONE ×2 (05:23→05:54)
[2021-02-22 05:57] LABS: ALBUMIN 3.4 g/dl (3.4-5.0); CALCIUM 8.8 mg/dL (8.5-10.1)
[2021-02-22 05:59] LABS: BLOOD UREA NITROGEN 19.6 mg/dL (7-18)
[2021-02-22 06:02] LABS: BILIRUBIN,TOTAL 0.2 mg/dL (0.2-1); CREATININE 0.8 mg/dL (0.55-1.3); PHOSPHOROUS 3.4 mg/dL (2.5-4.9); TOT PROT 8.5 g/dl (6.4-8.2)
[2021-02-22] MEDS ORDERED: CLINDAMYCIN HCL 150 MG CAPSULE (FP) PO ONE (06:11)
[2021-02-22] MEDS ORDERED: CLINDAMYCIN HCL 150 MG CAPSULE (FP) ONE ×2 (06:22→09:23)
[2021-02-22 06:26] LABS: BASO % 0.7 % (0-2.0); EOS % 2.9 % (0-4.5); HEMATOCRIT 31.3 % (32.4-45.2); HEMOGLOBIN 10.4 GM/dL (10.7-15.3); LYMPH % 37.1 % (8-40); MCH 24.8 pg (25.7-33.7); MCHC 33.3 g/dl (32.0-36.0); MEAN CELL VOLUME 74.3 fl (80-96); MEAN PLT VOLUME 8.1 fl (7.5-11.1); MONO % 11.3 % (3.8-10.2); PLATELET COUNT 391 10^3/uL (134-434); RBC 4.21 M/mm3 (3.60-5.2); RDW 15.1 % (11.6-15.6); WHITE BLOOD COUNT 6.6 K/mm3 (4.0-10.0)
[2021-02-22] MEDS ORDERED: IBUPROFEN 400 MG TABLET (FP) PO PRN (07:31)
[2021-02-22] MEDS ORDERED: SODIUM CHLORIDE 1,000 ML IV SCH (07:45)
[2021-02-22] MEDS ORDERED: CLINDAMYCIN HCL 150 MG CAPSULE (FP) PO SCH (08:45)
[2021-02-22] MEDS ORDERED: methaDONE HCL 10 MG TABLET (FOR DETOX USE ONLY) PO ONE (09:00)
[2021-02-22] MEDS ORDERED: methaDONE HCL 10 MG TABLET ONE ×2 (09:22→09:29)
[2021-02-22] MEDS ORDERED: methaDONE HCL 40 MG DISPERSABLE TABLET ONE (09:22)
[2021-02-22] MEDS ORDERED: chlordiazePOXIDE HCL 25 MG CAPSULE PO PRN (11:10)
[2021-02-22] MEDS ORDERED: PIPERACILLIN/TAZOB 3.375 GM 3.375 GM/50 ML BAG IVPB ONE (15:46)
[2021-02-22] MEDS: PIPERACILLIN/TAZOB 3.375 GM 3.375 GM in SODIUM CHLORIDE 50 ML IVPB SCH (15:54)
[2021-02-22] MEDS: NICOTINE 14 MG/24 HOURS TOPICAL PATCH TD SCH (16:06)
[2021-02-22] MEDS: diazePAM 2 MG TABLET PO PRN ×2 (16:37→23:07)
[2021-02-22] MEDS ORDERED: PIPERACILLIN/TAZOB 3.375 GM 3.375 GM in DEXTROSE 5%-WATER - 50 ML IVPB SCH (18:00)
[2021-02-22 22:58] VITALS: BMI 21.2
[2021-02-22] MEDS: CLINDAMYCIN HCL 150 MG CAPSULE (FP) PO SCH (23:06)
[2021-02-23 00:58] LABS: PH,URINE 7.5 (5.0-8.0); URINE APPEARANCE CLOUDY; URINE BILIRUBIN NEGATIVE (NEGATIVE); URINE COLOR YELLOW; URINE GLUCOSE (UA) NEGATIVE (NEGATIVE); URINE KETONE NEGATIVE (NEGATIVE); URINE LEUK ESTERASE NEGATIVE (NEGATIVE); URINE NITRITE NEGATIVE (NEGATIVE); URINE PROTEIN NEGATIVE (NEGATIVE)
[2021-02-23] MEDS: PIPERACILLIN/TAZOB 3.375 GM 3.375 GM in SODIUM CHLORIDE 50 ML IVPB SCH (04:07)
[2021-02-23] MEDS: CLINDAMYCIN HCL 150 MG CAPSULE (FP) PO SCH ×2 (05:51→13:21)
[2021-02-23] MEDS ORDERED: methaDONE HCL 10 MG TABLET ONE (05:54)
[2021-02-23] MEDS ORDERED: methaDONE HCL 40 MG DISPERSABLE TABLET ONE (05:55)
[2021-02-23] MEDS: diazePAM 2 MG TABLET PO PRN ×2 (07:05→13:21)
[2021-02-23 08:23] LABS: HEMATOCRIT 30.7 % (32.4-45.2); HEMOGLOBIN 9.5 GM/dL (10.7-15.3); MCH 23.5 pg (25.7-33.7); MCHC 30.9 g/dl (32.0-36.0); MEAN CELL VOLUME 76.1 fl (80-96); RBC 4.03 M/mm3 (3.60-5.2); RDW 15.1 % (11.6-15.6); WHITE BLOOD COUNT 5.4 K/mm3 (4.0-10.0)
[2021-02-23 08:27] LABS: BLOOD UREA NITROGEN 13.6 mg/dL (7-18)
[2021-02-23 08:28] LABS: ALBUMIN 3.1 g/dl (3.4-5.0)
[2021-02-23 08:29] LABS: CALCIUM 8.4 mg/dL (8.5-10.1); MAGNESIUM 1.9 mg/dL (1.8-2.4)
[2021-02-23 08:30] LABS: CREATININE 0.6 mg/dL (0.55-1.3); PHOSPHOROUS 3.1 mg/dL (2.5-4.9)
[2021-02-23 08:31] VITALS: BP 106/61; PULSE 65; TEMP 98.6
[2021-02-23 08:32] LABS: BILIRUBIN,TOTAL 0.3 mg/dL (0.2-1); TOT PROT 7.9 g/dl (6.4-8.2)
[2021-02-23] MEDS: NICOTINE 14 MG/24 HOURS TOPICAL PATCH TD SCH (09:15)
[2021-02-23] MEDS ORDERED: AMOX TR/POT CLAV 875MG/125MG TABLETS (FP) PO SCH (10:00)
== END 2021-02-23 16:13 | disposition other institution (70) | DRG 383 ==
LOC: JER 02:23 → INTOOBSV 06:15 → UNDOADMOB 06:15 → JERBED 06:15 → OBSVTOIN 12:04 → J7W 16:22
PROVIDERS: ATTEND Student in an Organized Health Care Education/Training Program
PROC: HZ91ZZZ Pharmacotherapy for Substance Abuse Treatment, Methadone Maintenance (ICD-10-PCS; principal; 2021-02-22)
DX: L03.113 Cellulitis of right upper limb (principal); L03.114 Cellulitis of left upper limb; S40.811A Abrasion of right upper arm, initial encounter; S40.812A Abrasion of left upper arm, initial encounter; F11.20 Opioid dependence, uncomplicated; D64.9 Anemia, unspecified; F41.9 Anxiety disorder, unspecified; F17.200 Nicotine dependence, unspecified, uncomplicated; X58.XXXA Exposure to other specified factors, initial encounter; Y93.9 Activity, unspecified; Y92.9 Unspecified place or not applicable; Y99.9 Unspecified external cause status
CPT/HCPCS: 36415; 71045-TC-FY; 80053; 81003; 83540; 83550; 83735; 84100; 84466; 84703; 85025; 85027; 87040; 93005; 93010; 93306-TC; 99285-25; C9803; G0378; U0003; U0005

== ENCOUNTER 2021-02-23 16:21 | Inpatient (IN) | payer OTHER ==
[2021-02-23 18:18] VITALS: BMI 21.4
[2021-02-23] MEDS ORDERED: LOPERAMIDE HCL 2 MG CAPSULE PO PRN (20:52)
[2021-02-23] MEDS ORDERED: P-EPHED 60MG/TRIPROLIDI 2.5MG TABLET PO PRN (20:52)
[2021-02-23] MEDS ORDERED: ACETAMINOPHEN 325 MG TABLET (FP) PO PRN (20:52)
[2021-02-23] MEDS ORDERED: MAGNESIUM CITRATE 300 ML BOTTLE PO PRN (20:52)
[2021-02-23] MEDS ORDERED: guaiFENesin 200 MG/10 ML 10 ML UNIT-DOSE CUPS PO PRN (20:52)
[2021-02-23] MEDS ORDERED: MAGNESIUM HYDROX 2400MG/30ML ORAL SUSPENSION 30 ML CUP PO PRN (20:52)
[2021-02-23] MEDS: GABAPENTIN 400 MG CAPSULE PO SCH (23:14)
[2021-02-23] MEDS: CLINDAMYCIN HCL 150 MG CAPSULE (FP) PO SCH (23:14)
[2021-02-23] MEDS: MELATONIN 5 MG TABLETS PO SCH (23:15)
[2021-02-23] MEDS: hydrOXYzine PAMOATE 25 MG CAPSULE (FP) PO SCH (23:15)
[2021-02-23] MEDS: THIAMINE HCL 100 MG TABLET (FP) PO SCH (23:15)
[2021-02-24] MEDS: hydrOXYzine PAMOATE 25 MG CAPSULE (FP) PO SCH (06:48)
[2021-02-24] MEDS: CLINDAMYCIN HCL 150 MG CAPSULE (FP) PO SCH ×3 (06:48→21:28)
[2021-02-24] MEDS: GABAPENTIN 400 MG CAPSULE PO SCH ×3 (06:48→21:28)
[2021-02-24] MEDS: AMOX TR/POT CLAV 875MG/125MG TABLETS (FP) PO SCH ×2 (09:00→17:11)
[2021-02-24] MEDS ORDERED: METHADONE HCL 10 MG TABLET PO SCH (09:00)
[2021-02-24] MEDS ORDERED: METHADONE 160 MG, METHADONE 10 MG, METHADONE 5 MG PO SCH ×2 (09:45→09:47)
[2021-02-24] MEDS ORDERED: NICOTINE 7 MG/24 HOURS TOPICAL PATCH TD SCH (10:00)
[2021-02-24] MEDS ORDERED: METHADONE HCL 40 MG DISPERSABLE TABLET ONE (10:26)
[2021-02-24] MEDS ORDERED: METHADONE HCL 10 MG TABLET ONE (10:27)
[2021-02-24] MEDS ORDERED: METHADONE HCL 5 MG TABLET ONE (10:27)
[2021-02-24] MEDS: PRENATAL VITAMINS W/ FOLIC ACID TABLET (FP) PO SCH (10:30)
[2021-02-24] MEDS: METHADONE 160 MG, METHADONE 10 MG, METHADONE 5 MG PO SCH (10:31)
[2021-02-24] MEDS: NICOTINE 21 MG/24 HOURS TOPICAL PATCH TD SCH (10:32)
[2021-02-24] MEDS: hydrOXYzine PAMOATE 25 MG CAPSULE (FP) PO PRN ×2 (14:09→21:30)
[2021-02-24] MEDS: IBUPROFEN 400 MG TABLET (FP) PO PRN (17:12)
[2021-02-24] MEDS: THIAMINE HCL 100 MG TABLET (FP) PO SCH (21:28)
[2021-02-24] MEDS: MELATONIN 5 MG TABLETS PO SCH (21:28)
[2021-02-25] MEDS ORDERED: METHADONE HCL 10 MG TABLET ONE (03:18)
[2021-02-25] MEDS ORDERED: METHADONE HCL 5 MG TABLET ONE (03:18)
[2021-02-25] MEDS ORDERED: METHADONE HCL 40 MG DISPERSABLE TABLET ONE (03:18)
[2021-02-25] MEDS: METHADONE 160 MG, METHADONE 10 MG, METHADONE 5 MG PO SCH (06:29)
[2021-02-25] MEDS: CLINDAMYCIN HCL 150 MG CAPSULE (FP) PO SCH ×3 (06:30→21:28)
[2021-02-25] MEDS: GABAPENTIN 400 MG CAPSULE PO SCH ×3 (06:30→21:28)
[2021-02-25] MEDS: AMOX TR/POT CLAV 875MG/125MG TABLETS (FP) PO SCH ×2 (07:00→16:49)
[2021-02-25] MEDS: NICOTINE 21 MG/24 HOURS TOPICAL PATCH TD SCH (10:09)
[2021-02-25] MEDS: hydrOXYzine PAMOATE 25 MG CAPSULE (FP) PO PRN ×2 (10:09→16:50)
[2021-02-25] MEDS: PRENATAL VITAMINS W/ FOLIC ACID TABLET (FP) PO SCH (10:09)
[2021-02-25] MEDS: MAG HYDROX/AL HYDROX/SIMETH 30 ML UNIT-DOSE CUP PO PRN (15:56)
[2021-02-25] MEDS: MELATONIN 5 MG TABLETS PO SCH (21:28)
[2021-02-25] MEDS: THIAMINE HCL 100 MG TABLET (FP) PO SCH (21:28)
[2021-02-25 22:59] LABS: PH,URINE 5.5 (5.0-8.0); URINE APPEARANCE CLEAR; URINE BILIRUBIN NEGATIVE (NEGATIVE); URINE COLOR YELLOW; URINE GLUCOSE (UA) NEGATIVE (NEGATIVE); URINE KETONE NEGATIVE (NEGATIVE); URINE LEUK ESTERASE NEGATIVE (NEGATIVE); URINE NITRITE NEGATIVE (NEGATIVE); URINE PROTEIN NEGATIVE (NEGATIVE); URINE UROBILINOGEN 0.2 mg/dL (0.2-1.0)
[2021-02-26] MEDS ORDERED: METHADONE HCL 40 MG DISPERSABLE TABLET ONE (03:20)
[2021-02-26] MEDS ORDERED: METHADONE HCL 5 MG TABLET ONE (03:20)
[2021-02-26] MEDS ORDERED: METHADONE HCL 10 MG TABLET ONE (03:20)
[2021-02-26] MEDS ORDERED: MASKS NR ONE (06:39)
[2021-02-26] MEDS: CLINDAMYCIN HCL 150 MG CAPSULE (FP) PO SCH ×3 (06:40→21:40)
[2021-02-26] MEDS: METHADONE 160 MG, METHADONE 10 MG, METHADONE 5 MG PO SCH (06:40)
[2021-02-26] MEDS: GABAPENTIN 400 MG CAPSULE PO SCH ×3 (06:40→21:39)
[2021-02-26] MEDS: AMOX TR/POT CLAV 875MG/125MG TABLETS (FP) PO SCH ×2 (07:51→17:21)
[2021-02-26] MEDS ORDERED: COLLOIDAL OATMEAL 1 BAR EACH TP PRN (09:02)
[2021-02-26] MEDS: NICOTINE 21 MG/24 HOURS TOPICAL PATCH TD SCH (10:06)
[2021-02-26] MEDS: PRENATAL VITAMINS W/ FOLIC ACID TABLET (FP) PO SCH (10:06)
[2021-02-26] MEDS: hydrOXYzine PAMOATE 25 MG CAPSULE (FP) PO PRN ×2 (14:16→21:41)
[2021-02-26] MEDS: FERROUS SO4 325 MG TABLET (FP) PO SCH (17:21)
[2021-02-26] MEDS: THIAMINE HCL 100 MG TABLET (FP) PO SCH (21:40)
[2021-02-26] MEDS: MELATONIN 5 MG TABLETS PO SCH (21:40)
[2021-02-27] MEDS ORDERED: METHADONE HCL 10 MG TABLET ONE (03:47)
[2021-02-27] MEDS ORDERED: METHADONE HCL 40 MG DISPERSABLE TABLET ONE (03:47)
[2021-02-27] MEDS ORDERED: METHADONE HCL 5 MG TABLET ONE (03:47)
[2021-02-27] MEDS: METHADONE 160 MG, METHADONE 10 MG, METHADONE 5 MG PO SCH (06:29)
[2021-02-27] MEDS: CLINDAMYCIN HCL 150 MG CAPSULE (FP) PO SCH ×3 (06:29→21:19)
[2021-02-27] MEDS: GABAPENTIN 400 MG CAPSULE PO SCH ×3 (06:29→21:19)
[2021-02-27] MEDS: AMOX TR/POT CLAV 875MG/125MG TABLETS (FP) PO SCH ×2 (07:16→17:28)
[2021-02-27] MEDS: FERROUS SO4 325 MG TABLET (FP) PO SCH ×2 (07:16→17:28)
[2021-02-27] MEDS: MAG HYDROX/AL HYDROX/SIMETH 30 ML UNIT-DOSE CUP PO PRN (09:09)
[2021-02-27] MEDS: NICOTINE 21 MG/24 HOURS TOPICAL PATCH TD SCH (09:56)
[2021-02-27] MEDS: PRENATAL VITAMINS W/ FOLIC ACID TABLET (FP) PO SCH (09:56)
[2021-02-27] MEDS: NICOTINE POLACRILEX 2 MG GUM BC PRN (09:57)
[2021-02-27] MEDS: hydrOXYzine PAMOATE 25 MG CAPSULE (FP) PO PRN ×2 (09:58→14:21)
[2021-02-27] MEDS ORDERED: BISMUTH SUBSALICYLATE 262 MG/15 ML BTL PO PRN (10:35)
[2021-02-27] MEDS ORDERED: ONDANSETRON *ODT* 4 MG TABLET SL PRN (10:36)
[2021-02-27] MEDS: IBUPROFEN 400 MG TABLET (FP) PO PRN (17:28)
[2021-02-27] MEDS: THIAMINE HCL 100 MG TABLET (FP) PO SCH (21:19)
[2021-02-27] MEDS: MELATONIN 5 MG TABLETS PO SCH (21:19)
[2021-02-27] MEDS: QUEtiapine FUMARATE 50 MG TABLET PO SCH (21:20)
[2021-02-27] MEDS: CLOTRIMAZOLE 1% VAGINAL CREAM WITH APPLICATOR 45 GM TUBE VG SCH (21:20)
[2021-02-28] MEDS ORDERED: METHADONE HCL 5 MG TABLET ONE (03:18)
[2021-02-28] MEDS ORDERED: METHADONE HCL 10 MG TABLET ONE (03:18)
[2021-02-28] MEDS ORDERED: METHADONE HCL 40 MG DISPERSABLE TABLET ONE (03:18)
[2021-02-28] MEDS: CLINDAMYCIN HCL 150 MG CAPSULE (FP) PO SCH ×3 (07:01→21:29)
[2021-02-28] MEDS: FERROUS SO4 325 MG TABLET (FP) PO SCH ×2 (07:01→17:39)
[2021-02-28] MEDS: AMOX TR/POT CLAV 875MG/125MG TABLETS (FP) PO SCH ×2 (07:01→17:39)
[2021-02-28] MEDS: GABAPENTIN 400 MG CAPSULE PO SCH ×3 (07:01→21:30)
[2021-02-28] MEDS: METHADONE 160 MG, METHADONE 10 MG, METHADONE 5 MG PO SCH (07:01)
[2021-02-28] MEDS: NICOTINE 21 MG/24 HOURS TOPICAL PATCH TD SCH (09:59)
[2021-02-28] MEDS: PRENATAL VITAMINS W/ FOLIC ACID TABLET (FP) PO SCH (09:59)
[2021-02-28] MEDS: hydrOXYzine PAMOATE 25 MG CAPSULE (FP) PO PRN ×2 (09:59→13:52)
[2021-02-28] MEDS: IBUPROFEN 400 MG TABLET (FP) PO PRN (10:51)
[2021-02-28] MEDS ORDERED: BENZOCAINE 20 % GEL TUBE MM PRN (10:55)
[2021-02-28] MEDS: THIAMINE HCL 100 MG TABLET (FP) PO SCH (21:30)
[2021-02-28] MEDS: MELATONIN 5 MG TABLETS PO SCH (21:30)
[2021-02-28] MEDS: QUEtiapine FUMARATE 50 MG TABLET PO SCH (21:30)
[2021-02-28] MEDS: CLOTRIMAZOLE 1% VAGINAL CREAM WITH APPLICATOR 45 GM TUBE VG SCH (21:32)
[2021-03-01] MEDS ORDERED: METHADONE HCL 40 MG DISPERSABLE TABLET ONE ×2 (03:21→10:15)
[2021-03-01] MEDS ORDERED: METHADONE HCL 5 MG TABLET ONE ×2 (03:21→10:15)
[2021-03-01] MEDS ORDERED: METHADONE HCL 10 MG TABLET ONE ×2 (03:21→10:15)
[2021-03-01] MEDS: METHADONE 160 MG, METHADONE 10 MG, METHADONE 5 MG PO SCH (06:48)
[2021-03-01] MEDS: GABAPENTIN 400 MG CAPSULE PO SCH (06:48)
[2021-03-01] MEDS: CLINDAMYCIN HCL 150 MG CAPSULE (FP) PO SCH (06:48)
[2021-03-01 06:55] VITALS: BP 96/65; PULSE 75; TEMP 97.7
[2021-03-01] MEDS: AMOX TR/POT CLAV 875MG/125MG TABLETS (FP) PO SCH (07:03)
[2021-03-01] MEDS: FERROUS SO4 325 MG TABLET (FP) PO SCH (07:03)
[2021-03-01] MEDS ORDERED: METHADONE 160 MG, METHADONE 10 MG, METHADONE 5 MG PO SCH (10:00)
[2021-03-01] MEDS: IBUPROFEN 400 MG TABLET (FP) PO PRN (10:33)
[2021-03-01] MEDS: PRENATAL VITAMINS W/ FOLIC ACID TABLET (FP) PO SCH (10:33)
[2021-03-01] MEDS: NICOTINE 21 MG/24 HOURS TOPICAL PATCH TD SCH (10:33)
[2021-03-01] MEDS: NICOTINE POLACRILEX 2 MG GUM BC PRN (10:34)
== END 2021-03-01 12:28 | disposition home or self-care (01) | DRG 772 ==
LOC: YASAS 16:21 → Y3W 22:18
PROVIDERS: ADMIT Allergy & Immunology; ATTEND Allergy & Immunology
PROC: HZ42ZZZ Group Counseling for Substance Abuse Treatment, Cognitive-Behavioral (ICD-10-PCS; principal; 2021-02-23)
DX: F11.20 Opioid dependence, uncomplicated (principal); F10.20 Alcohol dependence, uncomplicated; F14.20 Cocaine dependence, uncomplicated; F13.20 Sedative, hypnotic or anxiolytic dependence, uncomplicated; F17.210 Nicotine dependence, cigarettes, uncomplicated; F41.9 Anxiety disorder, unspecified; G47.00 Insomnia, unspecified; L29.2 Pruritus vulvae; Z87.2 Personal history of diseases of the skin and subcutaneous tissue
CPT/HCPCS: 81003; 81025